=== PATIENT | male | born 1965 | race Hispanic/Latino ===

== ENCOUNTER 2018-06-29 10:50 | Emergency (ER) | payer BC, OTHER ==
--- OUTSIDE RECORDS SUMMARY | 2018-06-29 10:52 | XMS REPORT | Clinical Summary ---
:1965 Author Organization [facility] Address [address] [place] [address] Care Team Providers Name Role Phone AjithCarmenForrest Porter Primary Care Provider Unavailable Allergies Active Allergy Reactions Severity Noted Date Comments Penicillins Other (See Comments) 04/18/2016 unknown Medications Medication Sig Dispensed Refills Start Date End Date Status lisinopril Take 10 mg by 0 Active (PRINIVIL,ZESTRIL) mouth nightly. 10 MG tablet cholecalciferol, Take 5,000 0 Active vitamin D3, Units by mouth (VITAMIN D3) 5,000 daily. unit capsule clopidogrel Take 75 mg by 0 Active (PLAVIX) 75 mg mouth nightly. tablet aspirin (ECOTRIN) Take 81 mg by 0 Active 81 MG enteric mouth nightly. coated tablet niacin 500 MG Take 500 mg by 0 Active tablet mouth nightly. metoprolol Take 25 mg by 0 Active succinate XL mouth daily. (TOPROL-XL) 25 MG 24 hr tablet tamsulosin TAKE 1 CAPSULE 30 capsule 0 06/20/2016 Active (FLOMAX) 0.4 mg BY MOUTH EVERY capsule,extended NIGHT AT release 24hr BEDTIME tamsulosin TAKE ONE 90 capsule 2 10/19/2017 Active (FLOMAX) 0.4 mg CAPSULE BY capsule,extended MOUTH EVERY release 24hr DAY CIALIS 20 mg TAKE 1 BY 18 tablet 7 11/04/2017 Active tablet MOUTH NEEDED tamsulosin Take 1 capsule 30 capsule 0 05/06/2017 10/18/2017 Discontinued (FLOMAX) 0.4 mg (0.4 mg total) capsule,extended by mouth release 24hr nightly. Active Problems Problem Noted Date Coronary artery disease due to lipid rich plaque 04/18/2016 Encounters Date Type Specialty Care Team Description 11/04/2017 Refill Urology Teodora Coy MD 10/18/2017 Refill Urology Teodora Coy MD after 06/28/2017 Family History Medical History Relation Name Comments Diabetes Mother Hypertension Sister Relation Name Status Comments Mother Sister Social History Tobacco Use Types Packs/Day Years Used Date Never Smoker Alcohol Use Drinks/Week oz/Week Comments Yes SOCIALLY Sex Assigned at Date Recorded Not on file Job Start Date Occupation Industry Not on file Not on file Not on file Travel History Travel Start Travel End No recent travel history available. Last Filed Vital Signs Not on file Plan of Treatment Health Maintenance Due Date Last Done Comments MMR VACCINES (1 of 1 - Standard 1965 series) VARICELLA VACCINES (1 of 2 - 2-dose 1977 adolescent series) COLON CANCER SCREENING 2014 SHINGRIX VACCINE (1 of 2) 2014 INFLUENZA VACCINE 03/03/2018 HEPATITIS B VACCINES Aged Out No longer eligible based on patient's age to complete this topic IPV VACCINES Aged Out No longer eligible based on patient's age to complete this topic MENINGOCOCCAL VACCINE Aged Out No longer eligible based on patient's age to complete this topic Implants Implanted Type Area Urology Physician Device Shelf Model / Identifier Expiration Serial / Lot Date Stent Cor Resolute Integrity Ztrlims-Eltng Otw 3.5x15mm - [id number] Coronary N/A: [employer] [facility] - 09/05/2017 [id number] / Implanted: 04/18/2016 (Quantity not on file) Stents N/A VASCULAR / [id number] Stent Cor Resolute Integrity Ztrlims-Eltng Otw 3x12mm - [id number] Coronary N/ A: [employer] [facility] - 09/06/2016 [id number] / Implanted: 04/18/2016 (Quantity not on file) Stents N/A VASCULAR / [id number] Results Not on fileafter 06/28/2017 Insurance Payer Benefit Plan / Group Subscriber ID Type Phone Address [employer] xxxxxxxxxxxx PPO Advance Directives Patient has advance care planning documents on file. For more information, please contact:Juan Marie[address] [place] [address]
[2018-06-29] MEDS ORDERED: KETOROLAC 30 MG/ML INJ ONE (11:25)
[2018-06-29 11:38] LABS: Absolute Lymphocytes (CBC) 1.8 K/uL (0.7-4.9); Absolute Monocytes 0.8 K/uL (0.1-1.3); Absolute Neutrophil 4.1 K/uL (1.8-8.0); Basophils % 0.6 % (0-1.3); Eosinophils % 1.7 % (0-4.4); Hematocrit 43.1 % (39.6-49.0); Lymphocytes % 26.6 % (15.3-44.8); MCH 31.1 pg (27.0-35.0); MCV 89.5 fL (80-100); MPV 8.3 fL (7.6-11.3); Monocytes % 11.1 % (3.3-12.3); RBC Red Blood Cell Count 4.81 M/uL (4.33-5.43)
[2018-06-29 11:53] LABS: ALT/SGPT 105 U/L (12-78); AST/SGOT 65 U/L (15-37); Albumin 3.9 g/dL (3.4-5.0); Alkaline Phosphatase 57 U/L (45-117); BUN Blood Urea Nitrogen 17 mg/dL (7-18); Bicarbonate 23 mmol/L (21-32); Bilirubin Direct 0.1 mg/dL (0-0.2); Bilirubin Total 0.5 mg/dL (0.2-1.0); Glucose Level 99 mg/dL (74-106); Lipase 290 U/L (73-393); Protein, Total 7.6 g/dL (6.4-8.2); Sodium Level 138 mmol/L (136-145)
[2018-06-29 11:53] LABS: Urine Blood TRACE (NEG); Urine Glucose NEGATIVE (NEG); Urine Protein NEGATIVE (NEG)
--- NOTE | 2018-06-29 12:09 | RAD REPORT ---
EXAM DESCRIPTION: CT - Stone Protocol - 06/29/2018 11:47 am CLINICAL HISTORY: Left-sided flank pain COMPARISON: CT stone June 2013 TECHNIQUE: Axial 5 mm thick images were obtained without oral or IV contrast. The [id number] span s the entirety of the system including uppermost abdomen and lung bases. All CT scans are performed using dose optimization technique as appropriate and may include automated exposure control or mA/KV adjustment according to patient size. FINDINGS: No hydronephrosis is present and no obstructing ureteral calculi. No suspicious renal mass es. Isodense masses and pyelonephritis are not excluded on a stone protocol CT scan. No urinary bladd er suspicious finding. No adrenal gland abnormality. Liver shows diffuse fatty infiltration pattern. No focal liver lesions seen. Spleen, pancreas show no suspicious findings. Gallbladder is contracted. No biliary tree dilatation. No suspicious bowel findings. No mass or bulky lymphadenopathy. Patient has a very small 15 mm umbilical hernia. More moderate size bilateral fat filled inguinal hernias are present without acute component. No free air, free fluid o r inflammatory stranding. Disc and bony degenerative changes are present. Degenerative changes are prominent at L4-5 and L5-S1. IMPRESSION: No hydronephrosis, obstructing calculus or acute finding. Isodense masses and pyelonephritis are not excluded on stone protocol technique. Diffuse fatty infiltration of a prominent sized liver. Moderate-sized bilateral fat filled inguinal hernias with no acute components identifiable.
--- NOTE | 2018-06-29 12:34 | ER ---
Nurse's Notes [facility] Name: Girogi Rudd Age: 52 yrs Sex: Male : 1965 Arrival Date: 06/29/2018 Time: 10:52 Bed 23 Private MD: Forrest Porter Diagnosis: Low back pain Presentation: 06/29 11:00 Presenting complaint: Patient states: "I got a pain in my lower back on the left side, aj1 but its getting progressively worse. It feels like before when I had a kidney stone." Reports he has been having this pain for the past 2 days. Denies dysuria, urinary frequency. Denies fever. He has been taking Azo at home, but it hasn't helped the pain. Transition of care: patient was not received from another setting of care. Onset of symptoms was June 27, 2018. Risk Assessment: Do you want to hurt yourself or someone else? Patient reports no desire to harm self or others. Initial Sepsis Screen: Does the patient meet any 2 criteria? No. Patient's initial sepsis screen is negative. Does the patient have a suspected source of infection? No. Patient's initial sepsis screen is negative. Care prior to arrival: None. 11:00 Method Of Arrival: Ambulatory aj1 11:00 Acuity: FELIPE 3 aj1 Triage Assessment: 11:06 General: Appears in no apparent distress. uncomfortable, Behavior is calm, cooperative, aj1 appropriate for age. Pain: Complains of pain in left low back Pain currently is 10 out of 10 on a pain scale. Neuro: Level of Consciousness is awake, alert, obeys commands. Cardiovascular: Patient's skin is warm and dry. Respiratory: Airway is patent Respiratory effort is even, unlabored, Respiratory pattern is regular, symmetrical. Musculoskeletal: Range of motion: intact in all extremities. 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 - Social history:: Smoking status: Patient/guardian denies using tobacco. - Ebola Screening: : Patient denies travel to an Ebola-affected area in the 21 days before illness onset. - Family history:: not pertinent. - Hospitalizations: : No recent hospitalization is reported. Screenin:28 Abuse screen: Denies threats or abuse. Denies injuries from another. Nutritional jl7 screening: No deficits noted. Tuberculosis screening: No symptoms or risk factors identified. Fall Risk IV access (20 points). Total Espinal Fall Scale indicates No Risk (0-24 pts). Assessment: 11:28 General: Appears in no apparent distress. uncomfortable, Behavior is calm, cooperative, jl7 appropriate for age. Pain: Complains of pain in left low back Pain radiates to left lower quadrant Pain currently is 8 out of 10 on a pain scale. Pain began 2-3 days ago. Is continuous. Neuro: Level of Consciousness is awake, alert, obeys commands, Oriented to person, place, time, situation, Moves all extremities. Full function Gait is steady. Cardiovascular: Patient's skin is warm and dry. Respiratory: Airway is patent Respiratory effort is even, unlabored, Respiratory pattern is regular, symmetrical. GI: Patient currently denies diarrhea, nausea, vomiting. : Urine is clear, Denies burning with urination, inability to void, urinary frequency. EENT: No signs and/or symptoms were reported regarding the EENT system. Derm: Skin is pink, warm \\T\\ dry. Musculoskeletal: No signs and/or symptoms reported regarding the musculoskeletal system. 12:30 Reassessment: Patient appears in no apparent distress at this time. Patient and/or jl7 family updated on plan of care and expected duration. Pain level reassessed. Patient is alert, oriented x 3, equal unlabored respirations, skin warm/dry/pink. Vital Signs: 11:06 BP 124 / 85; Pulse 81; Resp 18; Temp 98.5; Pulse Ox 97% on R/A; Weight 97.52 kg (R); aj1 Height 5 ft. 11 in. (180.34 cm) (R); Pain 10/10; 12:56 BP 114 / 83; Pulse 66; Resp 16; Pulse Ox 98% ; Pain 5/10; jl7 11:06 Body Mass Index 29.99 (97.52 kg, 180.34 cm) aj1 ED Course: 10:52 Patient arrived in ED. as 10:54 Forrest Proter MD is Private Physician. as 11:04 Triage completed. aj1 11:06 Arm band placed on Patient placed in an exam room. aj1 11:10 Ehsan Munoz RN is Primary Nurse. jl7 11:10 Checo Cooley MD is Attending Physician. rn 11:28 Patient has correct armband on for positive identification. Placed in gown. Bed in low jl7 position. Call light in reach. Pulse ox on. NIBP on. Warm blanket given. 11:28 Initial lab(s) drawn, by me, sent to lab. Urine collected: clean catch specimen, clear. jl7 Inserted saline lock: 20 gauge in right forearm, using aseptic technique. Blood collected. 11:48 CT Stone Protocol In Process Unspecified. EDMS 12:57 No provider procedures requiring assistance completed. IV discontinued, intact, jl7 bleeding controlled, No redness/swelling at site. Pressure dressing applied. Administered Medications: 11:28 Drug: TORadol 30 mg Route: IVP; Site: right forearm; jl7 11:50 Follow up: Response: No adverse reaction; Pain is decreased jl7 12:40 Drug: Decadron - Dexamethasone 10 mg Route: IVP; Site: right forearm; jl7 12:55 Follow up: Response: No adverse reaction jl7 Outcome: 12:32 Discharge ordered by . rn 12:57 Discharged to home ambulatory. jl7 12:57 Condition: stable 12:57 Discharge instructions given to patient, family, Instructed on discharge instructions, follow up and referral plans. medication usage, Demonstrated understanding of instructions, follow-up care, medications, Prescriptions given X 2. 12:57 Patient left the ED. jl7 Signatures: Dispatcher [employer] EDMS Rissa Leslie RN RN aj1 Carlota Abad as Checo Cooley MD MD rn Leal, Jahala, RN RN jl7
--- NOTE | 2018-06-29 12:34 | EDPHYS ---
Physician Documentation [facility] Name: Giorgi Rudd Age: 52 yrs Sex: Male : 1965 Arrival Date: 06/29/2018 Time: 10:52 Bed 23 Private MD: Forrest Porter ED Physician Checo Cooley HPI: 06/29 11:33 This 52 yrs old Male presents to ER via Ambulatory with complaints of Back rn Pain, Leg Pain. 11:33 The patient presents with pain that is acute, with no known mechanism of injury. rn 11:33 The symptoms are located in the low back. Onset: The symptoms/episode began/occurred 2 rn day(s) ago. Associated signs and symptoms: Pertinent negatives: abdominal pain, chest pain, constipation, dysuria, fever, hematuria, incontinence, numbness, tingling, urinary retention, vomiting, weakness. Modifying factors: The patient symptoms are alleviated by nothing, the patient symptoms are aggravated by any movement. Severity of symptoms: At their worst the symptoms were mild, in the emergency department the symptoms are unchanged. The patient has experienced a previous episode. Reports low back pain, radiates to left flank and down left leg, no trauma, no fever/vomiting/abd pain/diarrhea/urinary symptoms. . 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 - Social history:: Smoking status: Patient/guardian denies using tobacco. - Ebola Screening: : Patient denies travel to an Ebola-affected area in the 21 days before illness onset. - Family history:: not pertinent. - Hospitalizations: : No recent hospitalization is reported. ROS: 11:33 Constitutional: Negative for fever, chills, and weight loss, Eyes: Negative for injury, rn pain, redness, and discharge, Neck: Negative for injury, pain, and swelling, Cardiovascular: Negative for chest pain, palpitations, and edema, Respiratory: Negative for shortness of breath, cough, wheezing, and pleuritic chest pain, Abdomen/GI: Negative for abdominal pain, nausea, vomiting, diarrhea, and constipation, Back: Negative for injury : Negative for injury, bleeding, discharge, and swelling, MS/Extremity: Negative for injury and deformity, Skin: Negative for injury, rash, and discoloration, Neuro: Negative for headache, weakness, numbness, tingling, and seizure. Exam: 11:33 Constitutional: This is a well developed, well nourished patient who is awake, alert, rn and in no acute distress. Ambulatory to room Abdomen/GI: soft, non-tender Back: No spinal tenderness. No costovertebral tenderness. Pain with twisting of torso MS/ Extremity: Pulses equal, no cyanosis. Neurovascular intact. Full, normal range of motion. Equal circumference. Neuro: Awake and alert, GCS 15, oriented to person, place, time, and situation. Cranial nerves II-XII grossly intact. Motor strength 5/5 in all extremities. Sensory grossly intact. Cerebellar exam normal. Normal gait. Vital Signs: 11:06 BP 124 / 85; Pulse 81; Resp 18; Temp 98.5; Pulse Ox 97% on R/A; Weight 97.52 kg (R); aj1 Height 5 ft. 11 in. (180.34 cm) (R); Pain 10/10; 12:56 BP 114 / 83; Pulse 66; Resp 16; Pulse Ox 98% ; Pain 5/10; jl7 11:06 Body Mass Index 29.99 (97.52 kg, 180.34 cm) aj1 MDM: 11:10 Patient medically screened. rn 12:31 Differential diagnosis: arthritis, Fatigue Osteoarthritis Pyelonephritis sprain, rn Ureterolithiasis kidney stone, muscle spasm, radiculopathy. Data reviewed: vital signs, nurses notes, lab test result(s), radiologic studies, CT scan, and as a result, I will discharge patient. Counseling: I had a detailed discussion with the patient and/or guardian regarding: the historical points, exam findings, and any diagnostic results supporting the discharge/admit diagnosis, lab results, radiology results, the need for outpatient follow up, to return to the emergency department if symptoms worsen or persist or if there are any questions or concerns that arise at home. Response to treatment: the patient's symptoms have mildly improved after treatment. 12:32 ED course: CT stone normal, possible passed stone given trace hematuria, but also worse rn with movement and radiation down left leg might be radiculopathy/muscle spasm. . 06/29 11:15 Order name: Urine Dipstick--Ancillary (enter results); Complete Time: 11:56 bd 06/29 11:16 Order name: Basic Metabolic Panel; Complete Time: 11:56 rn 06/29 11:16 Order name: CBC with Diff; Complete Time: 11:56 rn 06/29 11:16 Order name: Hepatic Function; Complete Time: 11:56 rn 06/29 11:16 Order name: Lipase; Complete Time: 11:56 rn 06/29 11:16 Order name: CT Stone Protocol; Complete Time: 12:10 rn 06/29 11:16 Order name: IV Saline Lock; Complete Time: 11:28 rn 06/29 11:16 Order name: Labs collected and sent; Complete Time: 11:28 rn Administered Medications: 11:28 Drug: TORadol 30 mg Route: IVP; Site: right forearm; jl7 11:50 Follow up: Response: No adverse reaction; Pain is decreased jl7 12:40 Drug: Decadron - Dexamethasone 10 mg Route: IVP; Site: right forearm; jl7 12:55 Follow up: Response: No adverse reaction jl7 Disposition: 06/29/18 12:32 Discharged to Home. Impression: Low back pain. - Condition is Stable. - Discharge Instructions: Back Pain, Adult, Kidney Stones, Musculoskeletal Pain. - Prescriptions for Cyclobenzaprine 10 mg Oral Tablet - take 1 tablet by ORAL route every 8 hours As needed; 30 tablet. Medrol (William) 4 mg Oral Tablets, Dose Pack - take 1 tablet by ORAL route as directed - follow package instructions; 1 packet. - Medication Reconciliation Form, Thank You Letter, Antibiotic Education, Prescription Opioid Use form. - Follow up: Private Physician; When: As needed; Reason: Recheck today's complaints, Re-evaluation by your physician. - Problem is new. - Symptoms have improved. Signatures: Dispatcher [employer] EDRissa Olivera RN RN aj1 Checo Cooley MD MD rn Leal, Jahala, RN RN jl7 Corrections: (The following items were deleted from the chart) 12:57 12:32 06/29/2018 12:32 Discharged to Home. Impression: Low back pain. Condition is jl7 Stable. Forms are Medication Reconciliation Form, Thank You Letter, Antibiotic Education, Prescription Opioid Use. Follow up: Private Physician; When: As needed; Reason: Recheck today's complaints, Re-evaluation by your physician. Problem is new. Symptoms have improved. rn
[2018-06-29] MEDS ORDERED: DEXAMETHASONE 4 MG/ML VIAL ONE (12:47)
[2018-06-29 13:06] VITALS: TEMP 98.5
[2018-06-29 13:08] VITALS: BP 114/83; O2SAT 98
== END 2018-06-29 12:57 | disposition home or self-care (01) ==
LOC: ER 10:50
DX: M54.5 Low back pain (principal); Z79.82 Long term (current) use of aspirin; Z88.0 Allergy status to penicillin; Z95.818 Presence of other cardiac implants and grafts
CPT/HCPCS: 36415; 74176; 76377; 80048; 80076; 81003; 83690; 85025; 96374; 96375; 99284

== ENCOUNTER 2019-07-28 13:25 | Emergency (ER) | payer BC ==
--- OUTSIDE RECORDS SUMMARY | 2019-07-28 13:27 | XMS REPORT ---
:1965 Author [facility] Address [address] [place] [address] Dr. Mac [address] [place] [id number] Care Team Providers Name Role Phone Unavailable Unavailable Unavailable Problems This patient has no known problems. Allergies, Adverse Reactions, Alerts This patient has no known allergies or adverse reactions. Medications This patient has no known medications.
--- OUTSIDE RECORDS SUMMARY | 2019-07-28 13:27 | XMS REPORT | Summary of Care ---
:1965 Author Organization [facility] [place] [address] Care Team Providers Name Role Phone System, Pcp Not In Primary Care Provider Reason for Visit Reason Comments Eye Trauma Encounter Details Date Type Department Care Team Description 04/01/2019 Office Visit [facility] Ronan Engel MD Eye Trauma Ophthalmology [address] [facility] [address] [place] [address] [place] [address] Allergies Active Allergy Reactions Severity Noted Date Comments Penicillins 01/07/2012 documented as of this encounter (statuses as of 04/01/2019) Medications Medication Sig Dispensed Refills Start End Date Status Date diltiazem (TIAZAC) 0 Active 180 MG SR capsule 9 azithromycin TAKE 2 TABLETS BY 0 Active (ZITHROMAX) 250 MG MOUTH TODAY, THEN 9 tablet TAKE 1 TABLET DAILY FOR 4 DAYS cyclobenzaprine TAKE 1 TABLET BY 1 Active (FLEXERIL) 10 MG MOUTH 3 TIMES A 9 tablet DAY NEEDED FOR SPASMS lisinopril TAKE 1 TABLET BY 3 Active (PRINIVIL, ZESTRIL) MOUTH EVERY DAY 9 20 MG tablet lisinopril Take 10 mg by 0 Active (PRINIVIL, ZESTRIL) mouth. 10 MG tablet prednisoLONE acetate Place 1 Drop into 10 mL 2 Active (PRED FORTE) 1 % both eyes daily. 9 ophthalmic Shake well before suspension instillation prednisoLONE acetate Place 1 Drop into 10 mL 2 04/01/20 Discontinued (PRED FORTE) 1 % both eyes daily. 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 documented as of this encounter Last Filed Vital Signs Not on filedocumented in this encounter Progress Notes Ronan Engel MD - 04/01/2019 1:00 PM CDT STUDY/STUDIES: none ASSESSMENT: 1. Cornea replaced by transplant 2. S/P ASA/PRK (advanced surface ablation photorefractive keratectomy) 3. Presbyopia - Recent FB OS while weed eating w/ ESTEE - no evidence of IOFB or surface FB PLAN: - ATs - PF qd OS for 1 week - Return to clinic in 1 year ATTESTATIONS: I have reviewed the PMH, SH, FHX, ROS, MEDS, ALLERGIES and TECH NOTE, and have updated the computerized patient record appropriately. The risks, benefits, and alternatives of treatment were discussed with the patient (& family, ifpresent). All questions regarding diagnosis and treatment were answered to the patient's satisfaction. documented in this encounter Plan of Treatment Health Maintenance Due Date Last Done Comments COLON CANCER SCREENING: COLONOSCOPY 1965 TETANUS SHOT (ADULT) 11/27/1979 HEPATITIS C SCREENING 1982 HIV SCREENING 1982 FLU VACCINE > 6 MONTHS 03/03/2019 documented as of this encounter Results Not on filedocumented in this encounter Visit Diagnoses Diagnosis Subconjunctival hematoma, left - Primary Cornea replaced by transplant S/P ASA/PRK (advanced surface ablation photorefractive keratectomy) Other states following surgery of eye and adnexa Presbyopia documented in this encounter Insurance Payer Benefit Plan / Subscriber ID Effective Dates Phone Address Type Group [employer] OUT OF STATE xxxxxxxxxxxx 2016-Present [address] [facility] [phone] documented as of this encounter
[2019-07-28 14:50] LABS: Absolute Lymphocytes (CBC) 1.7 K/uL (0.7-4.9); Hematocrit 42.9 % (39.6-49.0); Lymphocytes % 25.1 % (15.3-44.8); RBC Red Blood Cell Count 4.91 M/uL (4.33-5.43)
[2019-07-28 15:09] LABS: ALT/SGPT 93 U/L (12-78); AST/SGOT 73 U/L (15-37); Albumin 3.7 g/dL (3.4-5.0); Alkaline Phosphatase 56 U/L (45-117); BUN Blood Urea Nitrogen 16 mg/dL (7-18); Bicarbonate 24 mmol/L (21-32); Bilirubin Direct 0.1 mg/dL (0-0.2); Bilirubin Total 0.5 mg/dL (0.2-1.0); Glucose Level 105 mg/dL (74-106); Lipase 196 U/L (73-393); Protein, Total 7.3 g/dL (6.4-8.2); Sodium Level 138 mmol/L (136-145)
--- NOTE | 2019-07-28 15:41 | RAD REPORT ---
EXAM DESCRIPTION: CT - Abdomen Pelvis W Contrast - 07/28/2019 3:31 pm CLINICAL HISTORY: ABD PAIN COMPARISON: CT study June 2018. TECHNIQUE: Biphasic, helical CT imaging of the abdomen and pelvis was performed following 100 ml non -ionic IV contrast. No oral contrast. All CT scans are performed using dose optimization technique as appropriate and may include automated exposure control or mA/KV adjustment according to patient size. FINDINGS: No suspicious findings in the lung bases. Pronounced, diffuse fatty infiltration of the liver is present. There is minimal sparing at the gallb ladder fossa. No focal liver lesion. Spleen and pancreas show no acute findings. Gallbladder and bili kristen tree are also without suspicious finding. Symmetric renal function is seen with no hydronephrosis or suspicious renal mass. No pyelonephritis o r acute parenchymal process. No obstructing or nonobstructing calculi. No urinary bladder abnormality seen. Prostate gland and seminal vesicles are within normal range. No adrenal abnormalities. No stomach or small bowel abnormalities. No appendicitis. Small bowel loops are not outside of normal range. No acute colon finding identified. No free air, free fluid or inflammatory stranding. No ma ss or bulky lymphadenopathy. Patient has bilateral moderate-sized fat filled inguinal hernias. No acu te component identified. A small fat only umbilical hernia present. Hernia changes are similar to com parison. Advanced disc and bony degenerative change present at L4-5 and L5-S1. Prominent disc bulge changes ar e present. L4-5 spinal stenosis is evident. There is bilateral foraminal encroachment present. No par s defects seen. IMPRESSION: No bowel obstruction, free air or surgically emergent finding. Fluid-filled small bowel loops could indicate a mild nonspecific enteritis. Bilateral fat filled inguinal hernias are present. No active component in these are similar to compar brandi. L4-5 and L5-S1 disc and endplate degenerative change. There is L4-5 central spinal stenosis. Central canal detail is inherently limited. Degenerative changes are not substantially different from Novem nida 2018.
--- NOTE | 2019-07-28 16:05 | ER ---
Nurse's Notes [facility] Name: Giorgi Rudd Age: 53 yrs Sex: Male : 1965 Arrival Date: 07/28/2019 Time: 13:26 Bed 19 Private MD: Alex Lucas V Diagnosis: Low back pain Presentation: 07/28 13:36 Presenting complaint: Patient states: reports shooting pain across the entire lower sr5 back since Thursday, getting more and more uncomfortable. Denies trauma. Steady gait into triage. Reports history of kidney stones. Denies urinary s/s. Transition of care: patient was not received from another setting of care. Onset of symptoms was July 26, 2019. Risk Assessment: Do you want to hurt yourself or someone else? Patient reports no desire to harm self or others. Initial Sepsis Screen: Does the patient meet any 2 criteria? No. Patient's initial sepsis screen is negative. Does the patient have a suspected source of infection? No. Patient's initial sepsis screen is negative. Care prior to arrival: None. 13:36 Method Of Arrival: Ambulatory sr5 13:36 Acuity: FELIPE 3 sr5 Triage Assessment: 13:38 General: Appears uncomfortable, Behavior is calm, cooperative. Pain: Complains of pain sr5 in lumbar area, left low back and right low back Pain currently is 10 out of 10 on a pain scale. Quality of pain is described as sharp, Aggravated by repositioning. Neuro: No deficits noted. Cardiovascular: No deficits noted. 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 - Social history:: Smoking status: Patient/guardian denies using tobacco, never smoked. - Ebola Screening: : Patient negative for fever greater than or equal to 101.5 degrees Fahrenheit, and additional compatible Ebola Virus Disease symptoms. Screenin:52 Abuse screen: Denies threats or abuse. Nutritional screening: No deficits noted. em Tuberculosis screening: No symptoms or risk factors identified. Fall Risk None identified. Assessment: 14:15 General: Appears in no apparent distress. comfortable, Behavior is calm, cooperative, em Denies fever. Pain: Complains of pain in back Pain at worst was 10 out of 10 on a pain scale. Neuro: Level of Consciousness is awake, alert, obeys commands, Oriented to person, place, time, situation, Appropriate for age Cut Order Hand are equal bilaterally Moves all extremities. Gait is Intact. Cardiovascular: Capillary refill < 3 seconds Patient's skin is warm and dry. Respiratory: Airway is patent Respiratory effort is even, unlabored, Respiratory pattern is regular, symmetrical. : Denies burning with urination, pain in suprapubic area. Derm: Skin is intact, is healthy with good turgor, Skin is pink, warm \T\ dry. Musculoskeletal: Capillary refill < 3 seconds, Range of motion: intact in all extremities. 15:22 Reassessment: Patient appears in no apparent distress at this time. Patient and/or em family updated on plan of care and expected duration. Pain level reassessed. Patient is alert, oriented x 3, equal unlabored respirations, skin warm/dry/pink. rates pain 2/10 Patient states feeling better. Patient states symptoms have improved. 15:28 Reassessment: Patient appears in no apparent distress at this time. wheeled to CT via em wheelchair. 16:24 Reassessment: Patient appears in no apparent distress at this time. Patient and/or iw family updated on plan of care and expected duration. Pain level reassessed. Patient is alert, oriented x 3, equal unlabored respirations, skin warm/dry/pink. Vital Signs: 13:38 BP 119 / 89; Pulse 86; Resp 16; Temp 97.9; Pulse Ox 96% on R/A; Weight 97.52 kg (R); sr5 Height 5 ft. 9 in. (175.26 cm); Pain 10/10; 13:38 Body Mass Index 31.75 (97.52 kg, 175.26 cm) sr5 ED Course: 13:26 Patient arrived in ED. rg4 13:27 Alex Lucas MD is Private Physician. rg4 13:38 Triage completed. sr5 13:38 Arm band placed on. sr5 13:40 Cirilo Liang FNP-C [facility]. la1 13:40 Checo Cooley MD is Attending Physician. la1 13:47 Geoffrey Martini LVN is Primary Nurse. em 13:52 Patient has correct armband on for positive identification. Bed in low position. Call em light in reach. Adult w/ patient. 14:43 Initial lab(s) drawn, by me, sent to lab. Inserted saline lock: 20 gauge in right ms forearm, using aseptic technique. Blood collected. 15:33 CT Abd/Pelvis - IV Contrast Only In Process Unspecified. EDMS 16:23 No provider procedures requiring assistance completed. Patient did not have IV access iw during this emergency room visit. Administered Medications: No medications were administered Outcome: 16:04 Discharge ordered by . la1 16:23 Discharged to home ambulatory, with family. iw 16:23 Condition: good 16:23 Discharge instructions given to patient, family, Instructed on discharge instructions, follow up and referral plans. no drinking with medication, no driving heavy equipment, medication usage, Demonstrated understanding of instructions, follow-up care, medications, Prescriptions given X 1. 16:24 Patient left the ED. iw Signatures: Dispatcher [employer] EDTN Geoffrey Martini, SHOE HANDLER SHOE HANDLER em Radha Carlin, RN RN Mandy Paris ms JeanineamericaCirilo, PAPER PRODUCTS SUPERVISOR-C PAPER PRODUCTS SUPERVISOR-Cla1 Jani Cunningham, RN RN Jocelyn Cunningham rg4
--- NOTE | 2019-07-28 16:06 | EDPHYS ---
Physician Documentation [facility] Name: Giorgi Rudd Age: 53 yrs Sex: Male : 1965 Arrival Date: 07/28/2019 Time: 13:26 Bed 19 Private MD: Alex Lucas V ED Physician Checo Cooley HPI: 07/28 14:55 This 53 yrs old Male presents to ER via Ambulatory with complaints of Low Back la1 Pain. 14:55 The patient presents with pain that is acute. The symptoms are located in the low back. la1 The pain does not radiate. The problem was sustained from unknown cause. Onset: The symptoms/episode began/occurred 2 day(s) ago. Modifying factors: The patient symptoms are alleviated by nothing, the patient symptoms are aggravated by any movement. Associated signs and symptoms: Pertinent positives: diarrhea. Severity of symptoms: At their worst the symptoms were mild. The patient has not experienced similar symptoms in the past. The patient has not recently seen a physician. pt reports pain that began in right flank area, has radiated across back. Also having diarrhea.. 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 - Social history:: Smoking status: Patient/guardian denies using tobacco, never smoked. - Ebola Screening: : Patient negative for fever greater than or equal to 101.5 degrees Fahrenheit, and additional compatible Ebola Virus Disease symptoms. ROS: 14:56 Constitutional: Negative for fever, chills, and weight loss, Eyes: Negative for injury, la1 pain, redness, and discharge, ENT: Negative for injury, pain, and discharge, Neck: Negative for injury, pain, and swelling, Cardiovascular: Negative for chest pain, palpitations, and edema, Respiratory: Negative for shortness of breath, cough, wheezing, and pleuritic chest pain. 14:56 : Negative for injury, bleeding, discharge, and swelling, Neuro: Negative for headache, weakness, numbness, tingling, and seizure. 14:56 Abdomen/GI: Positive for diarrhea. 14:56 Back: Positive for pain with movement, flank pain, bilaterally, Negative for decreased range of motion. Exam: 14:57 Constitutional: This is a well developed, well nourished patient who is awake, alert, la1 and in no acute distress. Head/Face: Normocephalic, atraumatic. Eyes: Pupils equal round and reactive to light, extra-ocular motions intact. Periorbital areas with no swelling, redness, or edema. Neck: . No Meningismus. Chest/axilla: Normal chest wall appearance and motion. Nontender with no deformity. No lesions are appreciated. Cardiovascular: Regular rate and rhythm with a normal S1 and S2. No gallops, murmurs, or rubs. Normal PMI, no JVD. No pulse deficits. Respiratory: Lungs have equal breath sounds bilaterally, clear to auscultation No rales, rhonchi or wheezes noted. No increased work of breathing, no retractions or nasal flaring. Abdomen/GI: Soft, non-tender, with normal bowel sounds. No distension or tympany. No guarding or rebound. No evidence of tenderness throughout. Back: No spinal tenderness. No costovertebral tenderness. Full range of motion. Skin: Warm, dry with normal turgor. Normal color with no rashes, no lesions, and no evidence of cellulitis. Neuro: Awake and alert, GCS 15, oriented to person, place, time, and situation. Normal gait. Vital Signs: 13:38 BP 119 / 89; Pulse 86; Resp 16; Temp 97.9; Pulse Ox 96% on R/A; Weight 97.52 kg (R); sr5 Height 5 ft. 9 in. (175.26 cm); Pain 10/10; 13:38 Body Mass Index 31.75 (97.52 kg, 175.26 cm) sr5 MDM: 13:40 Patient medically screened. la1 16:03 Data reviewed: vital signs, nurses notes, lab test result(s), radiologic studies, and la1 as a result, I will discharge patient. Data interpreted: Pulse oximetry: on room air is 96 %. Interpretation: normal. Counseling: I had a detailed discussion with the patient and/or guardian regarding: the historical points, exam findings, and any diagnostic results supporting the discharge/admit diagnosis, lab results, radiology results, the need for outpatient follow up, a family practitioner. 07/28 14:10 Order name: Basic Metabolic Panel; Complete Time: 15:55 [facility] 07/28 14:10 Order name: CBC with Diff; Complete Time: 15:55 [facility] 07/28 14:10 Order name: Hepatic Function; Complete Time: 15:55 [facility] 07/28 14:10 Order name: Lipase; Complete Time: 15:55 [facility] 07/28 14:10 Order name: IV Saline Lock; Complete Time: 14:43 [facility] 07/28 14:55 Order name: CT Abd/Pelvis - IV Contrast Only; Complete Time: 15:55 [facility] 07/28 14:10 Order name: Labs collected and sent; Complete Time: 14:43 [facility] 07/28 14:10 Order name: Urine Dipstick-Ancillary (obtain specimen); Complete Time: 14:35 la Administered Medications: No medications were administered Disposition: 19:05 Co-signature as Attending Physician, Checo Cooley MD. rn Disposition: 07/28/19 16:04 Discharged to Home. Impression: Low back pain. - Condition is Stable. - Discharge Instructions: Back Pain, Adult, Musculoskeletal Pain, Back Exercises, [id number]. - Prescriptions for Cyclobenzaprine 10 mg Oral Tablet - take 1 tablet by ORAL route every 8 hours As needed; 20 tablet. - Work release form, Medication Reconciliation Form, Thank You Letter form. - Follow up: Private Physician; When: 2 - 3 days; Reason: Recheck today's complaints, Re-evaluation by your physician. - Problem is new. - Symptoms are unchanged. Signatures: Dispatcher [employer] Radha Frias RN RN iw Nieto, Roman, MD MD rn Attema, Lee, LINE PALLETIZER-C LINE PALLETIZER-Cla1 ResJani wayne RN RN sr5 Corrections: (The following items were deleted from the chart) 16:24 16:04 07/28/2019 16:04 Discharged to Home. Impression: Low back pain. Condition is iw Stable. Forms are Medication Reconciliation Form, Thank You Letter, Antibiotic Education, Prescription Opioid Use. Follow up: Private Physician; When: 2 - 3 days; Reason: Recheck today's complaints, Re-evaluation by your physician. Problem is new. Symptoms are unchanged. la1
[2019-07-28 17:06] VITALS: BP 119/89; TEMP 97.9; O2SAT 96
== END 2019-07-28 16:24 | disposition home or self-care (01) ==
LOC: ER 13:25
DX: M54.5 Low back pain (principal); R19.7 Diarrhea, unspecified; Z95.818 Presence of other cardiac implants and grafts; Z88.0 Allergy status to penicillin
CPT/HCPCS: 85025; 80048; 36415; 80076; 83690; 74177; 99284; Q9967